=== PATIENT | male | born 1995 | race Hispanic/Latino ===

== ENCOUNTER 2017-10-04 10:45 | Outpatient (AMBR) | payer MEDICAID, SELFPAY ==
--- NOTE | 2017-10-04 11:08 | PTNOTE_ITS ---
PT OP Initial Eval Patient Information Visit Reasons: ankle and foot Medical Diagnosis: M66.879 Treatment Dx #1: R ankle pain Start of Care: 10/04/17 Date of Onset: May 2017 Initial Assessment Subjective Pt is 21 yr old male who injured R Achilles in May playing basketball. After the injury, he couldn't walk to the car or drive and he was on crutches for a week and then he started walking on the ankle. 3 weeks ago he was given a walking boot. He works at [employer] and he's on his feet for a lot of the day. He denies pain today unless he tries to jog. PMH: none reported Imaging: MRI in EMR, reviewed Pt goal: to get strength back in order to play sports Objective R ankle ArOM: Strength: DF: 12 deg 4/5 PF: 34 deg 3-/5 Inversion: full 4+/5 Eversion: full 4+/5 Heel raise B: to 50% height Observation: gastroc atrophy of R vs L Gait: decreased pushoff in terminal stance and eccentric DF Assessment Pt presents with decreased ankle DF ROM and strength s/p Achilles injury. MRI reveals complete rupture but he has gastroc strength and DF AROM consistent with partial rupture. Pt ambulates with decreased pushoff in terminal stance and limited eccentric DF with heel striking. Prognosis depends on how much of the Achilles is left. He is not having pain with palpation or heel raising with B but is unable to heel raise single leg on R. Short Term and Brand Advisor Goals 1. Ind with HEP 2. Improved plantarflexion strength to 4+/5 3. Pt will heel raise on R x10 50% height 4. Pt will jog 1/2 mile without pain in R ankle Treatment Plan Pt doesn't have any Rx visits authorized. Pt would benefit from therapy to decrease pain, improve ROM and address aforementioned impairments. 1. Manual therapy 2. Therex 3. Modalities as indicated, moist heat pack, ice, electrical stimulation Frequency and Duration 2x a week for 6 weeks Certification Dates: 10/04/17 to 01/02/18 Office Procedures PT Procedures PT Date of Service: 10/04/17 OP PT Eval Mod Complex 30 minutes: Yes
== END 2017-10-26 23:59 | disposition home or self-care (01) ==
PROVIDERS: PCP Physician Assistant; Referring Provider Physician Assistant; Visit Provider Podiatrist
DX: I10 Essential (primary) hypertension (principal)
CPT/HCPCS: 97162